=== PATIENT | female | born 1960 | race Caucasian/White ===

== ENCOUNTER 2016-04-23 10:46 | Observation (INO) | payer OTHER ==
[~2016-04-23] VITALS: Ht 149.9 cm; Wt 70.8 kg
--- NOTE | ~2016-04-23 | HEMODYNAMI ---
PATIENT:MARICHUY GONZALES MEDICAL RECORD: [id number] : 62 LOCATION[facility] [id number] ADMISSION DATE: 04/23/16 Generatedon:04/24/201614:23 Patient name: MARICHUY GONZALES Patient #: [id number] SSN: : 1960 Date of study: 04/24/2016 Page: Of Hemodynamic Procedure Report Patient Data Patient Demographics Procedure consent was obtained First Name: MARICHUY Gender: Female Last Name: CHRISTIAN : 1960 Middle Initial: L Age: 55 year(s) Patient #: [id number] Race: Unknown Additional ID: [id number] Contact details [address]: [address] [place] [address] State: [place] City: [place] Zip code: [address] Past Medical History Allergies Allergen Reaction Date Comments Reported Codeine 04/24/2016 Morphine 04/24/2016 Admission Admission Data Admission Date: 04/23/2016 Admission Time: 12:59 Admit Source: Other Room #: D.2122 Lab Results Lab Result Date: 04/24/2016 Lab Result Time: 0:00 Biochemistry Name Units Result Min Max Creatinine mg/dl 0.5 -*(----)-- 0.6 1.3 CBC Name Units Result Min Max Hemoglobin g/dl 14.5 --(*---)-- 13.5 17.5 Procedure Procedure Types Cath Procedure Diagnostic Procedure C [facility] w/Coronaries Miscellaneous Procedures Moderate Sedation up to 15 minutes Procedure Description Procedure Date Procedure Date: 04/24/2016 Procedure Start Time: 14:10 Procedure End Time: 14:23 Procedure Staff Name Function Jose Quezada MD Performing Physician João aTvares RN Nurse Mraiza Sanderson RT Monitor Ti Grant RT Research Chef Colton Guthrie RT Scrub Procedure Data Cath Procedure Fluoroscopy Diagnostic fluoroscopy Total fluoroscopy Time: 3.5 time: 3.5 min min Diagnostic fluoroscopy Total fluoroscopy dose: 426 dose: 426 mGy mGy Contrast Material Contrast Material Type Amount (ml) Isovue 300 65 Entry Location Entry Primary Successful Side Size Upsize Upsize Entry Closure Hernandes ccessful Closure Location (Fr) 1 (Fr) 2 (Fr) Remarks Device Remarks Radial Right 6 Fr Mechanical artery Short Compression Estimated blood loss: 5 ml Diagnostic catheters Device Type Used For End Catheter Placement Terumo 5Fr Pastor 110cm LV Angiography catheter Terumo 5Fr Pastor 110cm Left Coronary catheter Angiography Terumo 5Fr Pastor 110cm Right Coronary catheter Angiography Cordis Infinity 5Fr AR Right Coronary MOD Catheter Angiography Procedure Complications No complications Procedure Medications Medication Administration Route Dosage Oxygen NC 2 l/min Lidocaine 2% added to field 20 Heparin Flush Bag added to field 2 bags (1000units/500ml NS) 0.9% NaCl I.V. 100 ml/hr Versed I.V. 1 mg Fentanyl I.V. 50 mcg Radial Cocktail I.A. 1 syringe (Verapomil 2mg/Nitro 400mcg/Heparin 1500units) Hemodynamics Rest HGB: 14.5 (g/dl) Heart Rate: 92 (bpm) Pressure Samples Time Site Value (mmHg) Purpose Heart Use Rate(bpm) 14:12 LV 149/12,22 EDP 111 14:13 AO 119/85(96) Pullback 108 14:13 LV 141/7,17 Pullback 108 Gradients Valve Time Site 1 Site 2 Mean SEP/DFP Peak To Heart Use (mmHg) (sec/min) Peak Rate (mmHg) (bpm) Aortic 14:13 LV AO 9 21 22 108 141/7,17 119/85(96) Calculations Valve P-P Mean Valve Index Valve Source Name Gradient Area Flow (cm2) Aortic 22 9 22 9 Snapshots Pre Cath Intra NCS Post Cath Vital Signs Time Heart Resp SPO2 etCO2 AF2toxr NIBP (mmHg) Rhythm Pain Sedatio n Rate (ipm) (%) (mmHg) (mmHg) Status Level (bpm) 13:54:45 83 16 98 0 0 159/84(123) NSR 0 (11) 10(A) , No pain 13:59:03 83 16 100 0 0 151/87(136) NSR 0 (11) 10(A) , No pain 14:03:15 89 19 94 0 0 125/94(121) NSR 0 (11) 10(A) , No pain 14:08:14 97 18 98 0 0 Measuring NSR 0 (11) 10(A) , No pain 14:08:23 99 18 98 0 0 128/103(124) NSR 0 (11) 9(A) , No pain 14:12:33 110 18 98 0 0 140/88(0) NSR 0 (11) 9(A) , No pain 14:16:02 107 18 98 0 0 119/87(113) NSR 0 (11) 9(A) , No pain 14:20:03 106 19 98 0 0 128/92(124) NSR 0 (11) 10(A) , No pain Medications Time Medication Route Dose Verified Delivered Reason Notes Effectiveness by by 13:54:00 Oxygen NC 2 l/min Jose Buffie used for Damien Tavares RN procedure 13:54:08 Lidocaine 2% added 20ml Jose Jose for local to vial Damien Quezada MD anesthetic field 13:54:14 Heparin Flush added 2 bags Jose Jose used for Bag to Damien Quezada MD procedure (1000units/500ml field NS) 13:54:22 0.9% NaCl I.V. 100 Jose Buffie Per ml/hr Damien Tavares RN physician 14:06:54 Versed I.V. 1 mg Jose Buffie for sedation Damien Tavares RN 14:07:00 Fentanyl I.V. 50 mcg Jose Buffie for sedation Damien Tavares RN 14:12:04 Radial Cocktail I.A. 1 Jose Jose for (Verapomil syringe Damien Quezada MD vasodilation 2mg/Nitro 400mcg/Heparin 1500units) Procedure Log Time Note 13:25:26 Ti Grant RT(R) sent for patient. Start room use. 13:43:54 Admit Source: Other 13:47:20 Time tracking: Regular hours 13:47:24 Plan of Care:Hemodynamics will remain stable., Cardiac rhythm will remain stable., Comfort level will be maintained., Respiratory function will remain adequate., Patient/ family verbilizes understanding of procedure., Procedure tolerated without complication., Recovers from procedure without complications.. 13:48:30 Patient received from PCU to CCL 1 Alert and oriented. Tansferred to table in Supine position. 13:48:32 Warm blankets applied, and reyna hugger turned on for patient comfort. 13:48:33 Correct patient and procedure confirmed by team. 13:48:35 Signed procedure consent form obtained from patient. 13:48:41 ECG and BP/O2 sat monitors applied to patient. 13:48:43 Full Disclosure recording started 13:53:11 IV Extension Set opened to sterile field. 13:53:39 Vital chart was started 13:54:00 Oxygen 2 l/min NC was given by João Tavares RN; used for procedure; 13:54:08 Lidocaine 2% 20ml vial added to field was given by Jose Quezada MD; for local anesthetic; 13:54:14 Heparin Flush Bag (1000units/500ml NS) 2 bags added to field was given by Jose Quezada MD; used for procedure; 13:54:22 0.9% NaCl 100 ml/hr I.V. was given by João Tavares RN; Per physician; 14:01:53 Baseline sample Acquired. 14:02:38 H&P Date Dictated: 04/23/2016 Within 30 days and on chart.. 14:02:39 Pre-procedure instructions explained to patient. 14:02:40 Pre-op teaching completed and patient verbalized understanding. 14:02:41 Family in patients room. 14:02:50 Patient NPO since Midnight. 14:03:00 Patient allergic to Codeine 14:03:11 Patient allergic to Morphine 14:03:30 Is patient on blood thinner?No 14:03:32 Is patient on blood thinner?No 14:03:35 Is the patient allergic to Iodine/contrast media? No. 14:03:38 Patient diabetic? Yes. 14:03:39 If diabetic: On Metformin? No 14:03:43 Previous problem with sedation/anesthesia? No ? 14:03:45 Snore? Yes 14:03:46 Sleep apnea? No 14:03:48 Deviated septum? No 14:03:50 Opens mouth fully? Yes 14:03:51 Sticks out tongue? Yes 14:03:53 Airway obstruction? No ? 14:03:54 Dentures? No ? 14:03:57 Pre procedure: right dorsailis pedis pulse 2+ Normal; easily identifiable; not easily obliterated 14:03:59 Modified Woodrow's test Ulnar < 7 seconds 14:04:00 Patient pain scale 0/10 ?. 14:04:06 IV patent on arrival in right forearm with 0.9% NaCl at [facility]. 14:04:30 Lab Result : Creatinine 0.5 mg/dl 14:04:30 Lab Result : Hemoglobin 14.5 g/dl 14:04:34 Lab results completed and on chart. 14:04:37 Right Radial & Right Groin area was prepped with chlora-prep and draped in sterile fashion 14:04:38 Alarms reviewed by R. N. 14:04:38 Sharps counted by scrub and verified by R.N. 14:04:43 Use device set Radial Dx 14:04:44 Acist Syringe opened to sterile field. 14:04:45 Medline Cath Pack opened to sterile field. 14:04:45 Bag Decanter opened to sterile field. 14:04:46 Terumo 6Fr Slender Glidesheath opened to sterile field. 14:04:46 St Andre 260cm J .035 wire opened to sterile field. 14:04:47 Acist Hand Control opened to sterile field. 14:04:47 Acist Manifold opened to sterile field. 14:04:55 Cook 21G 4cm Radial Needle opened to sterile field. 14:05:20 Final Timeout: patient, procedure, and site verified with staff and physician. All members of the team are in agreement. 14:05:22 Right Radial site verified by team. 14:05:25 Physical assessment completed. ASA score P 2 - A patient with mild systemic disease as per Jose Quezada MD. 14:05:28 Sedation plan: IV Moderate Sedation Versed, Fentanyl 14:06:54 Versed 1 mg I.V. was given by João Tavares RN; for sedation; 14:07:00 Fentanyl 50 mcg I.V. was given by João Tavares RN; for sedation; 14:10:20 Procedure started. 14:10:25 Local anesthetic to right radial artery with Lidocaine 2% by Jose Quezada MD.INITIAL ACCESS ONLY 14:10:35 A 6 Fr Short sheath was inserted into the Right Radial artery 14:10:38 Zero performed for pressure channel P1 14:11:17 A Terumo 5Fr Pastor 110cm catheter was advanced over the wire and used for LV Angiography. 14:12:04 Radial Cocktail (Verapomil 2mg/Nitro 400mcg/Heparin 1500units) 1 syringe I.A. was given by Jose Quezada MD; for vasodilation; 14:12:46 LV gram done using MERAZ 14:12:53 LV hemodynamics recorded. 14:12:55 Injector settings: Ml/sec: 5, Volume: 15, 14:13:00 EF : 60 % 14:13:52 A Terumo 5Fr Pastor 110cm catheter was advanced over the wire and used for Left Coronary Angiography. 14:17:10 A Terumo 5Fr Pastor 110cm catheter was advanced over the wire and used for Right Coronary Angiography. removed unable to cannulate. 14:18:15 A Cordis Infinity 5Fr AR MOD Catheter was advanced over the wire and used for Right Coronary Angiography. 14:19:56 Catheter removed. 14:20:06 Procedure ended.(Physican Out) 14:20:16 Sheath removed intact; hemostasis achieved with Mechanical Compression to the Right Radial artery. 14:20:21 Terumo TR Band Standard opened to sterile field. 14:21:24 Fluoroscopy time 03.50 minutes. 14:21:29 Fluoroscopy dose: 426 mGy 14:21:29 Flurop Dose total: 426 14:21:33 Contrast amount:Isovue 300 65ml. 14:21:34 Sharps counted by scrub and verified by R.N. 14:21:36 TR band inflated with 12cc of air. 14:21:37 Insertion/operative site no bleeding no hematoma. 14:21:44 Post right radial artery:stable, clean and dry 14:21:45 Post Procedure Pulses reassessed and unchanged 14:21:49 Post-procedure physical assessment completed. ASA score P 2 - A patient with mild systemic disease as per Jose Quezada MD. 14:21:52 Post procedure rhythm: unchanged. 14:21:54 Estimated blood loss: 5 ml 14:21:55 Post procedure instruction explained to patient.Patient verbalizes understanding. 14:21:56 Patient needs reinforcement of post procedure teaching. 14:22:07 Procedure type changed to Cath procedure, Diagnostic procedure, LHC, LHC w/Coronaries, Miscellaneous Procedures, Moderate Sedation up to 15 minutes 14:22:21 Procedure Complication : No complications 14:23:01 Procedure and supply charges have been captured, reviewed, submitted and are correct. 14:23:03 See physician's report for complete and final results. 14:23:06 Vital chart was stopped 14:23:09 Report given to PCU. 14:23:12 Patient transfered to PCU with Bed. 14:23:14 Procedure ended. 14:23:14 Full Disclosure recording stopped 14:23:24 End room use (Document Last) Device Usage Item Name Manufacture Quantity Catalog Hospital Part Current Minimal Lot# / Number Charge Number Stock Stock Serial# Code IV Hospira 1 [id number] 61481 [id number] 5 Extension Set Acist Acist 1 27109 758182 017003 601064 20 Syringe [employer] Inc Medline Cardinal 1 [id number] 676233 04250 504291 5 Cath Pack Health Bag Microtek 1 2001S 499933 64794 451820 5 Decanter [employer]. Terumo 6Fr Terumo 1 [id number] 901443 138167 719612 [address] Andre 1 767673 982221 825494 925329 30 260cm J .035 wire Acist Hand Acist 1 61083 201657 527246 911034 5 Control Medical [employer] Inc Acist Acist 1 18580 957659 714604 781227 5 Manifold Medical [employer] Inc Cook 21G Cook Medical 1 [id number] 779057 667122 5 4cm Radial Needle Terumo 5Fr Terumo 1 33-1964 119461 573878 722772 5 Pastor 110cm catheter Cordis Cardinal 1 [id number] 575473 421881 698045 15 Inf[employer] 5Fr AR MOD Catheter Terumo TR Terumo 1 [id number] 097553 097747 328252 40 Band Standard Signature Audit [place] Stage Time Signature Unsigned Intra-Procedure 04/24/2016 Mariza 2:23:33 PM Counts RT(R) Signatures Monitor : Mariza Signature : Counts RT Date : Time : [facility] [address] [place] [address]
[2016-04-23 11:07] LABS: BASOPHILS 0.4 % (0.0-2.0); HEMATOCRIT 44.5 % (36.0-48.0); HEMOGLOBIN 15.6 g/dL (12-16); IMMATURE GRANULOCYTES 0.4 % (0-5); LYMPHOCYTES 34.8 % (15-50); MCH 31.5 pg (26.0-34.0); MCHC 35.1 g/dL (31.0-37.0); MCV 89.9 fL (80.0-100.0); MEAN PLATELET VOLUME 9.6 fL (7.4-10.4); MONOCYTES 6.8 % (2-11); NEUTROPHILS 55.6 % (40-80); PLATELET COUNT 181 10x3/uL (130-400); RBC 4.95 10x6/uL (4.00-5.40); RDW 12.8 % (11.5-14.5); WBC 5.5 10x3/uL (4.8-10.8)
[2016-04-23 11:36] LABS: ALBUMIN 4.2 g/dL (3.4-5.0); ALKALINE PHOSPHATASE 71 U/L (46-116); ALT (SGPT) 59 U/L (10-68); BILIRUBIN - TOTAL 0.28 mg/dL (0.2-1.3); CALC OSMOLALITY 287 mosm/kg (275-300); CALCIUM 9.6 mg/dL (8.5-10.1); CARBON DIOXIDE 26.9 mmol/L (21.0-32.0); CHLORIDE - SERUM 105 mmol/L (98-107); CREATININE - SERUM 0.8 mg/dL (0.6-1.3); GLUCOSE 147 mg/dL (74-106); PROTEIN - SERUM 7.6 g/dL (6.4-8.2); SODIUM 142 mmol/L (136-145); UREA NITROGEN 17 mg/dL (7-18); eGFR NON AFRICAN AMERICAN 79 mL/min (90-120)
[2016-04-23 11:48] LABS: AMYLASE - SERUM 81 U/L (25-115); CHOL - HDL RATIO 3.1 ratio (2.3-4.1); CHOLESTEROL, TOTAL 174 mg/dL (0-200); CKMB 0.7 U/L (0.0-3.6); CREATINE KINASE 67 UL (21-215); HDL CHOLESTEROL 57 mg/dL (32-96); LDL CHOLESTEROL 87 mg/dL (0-100); LDL-HDL RATIO 1.5 ratio (1.5-3.5); LIPASE 210 U/L (73-393); PRO BNP 131 pg/mL (0-125); TRIGLYCERIDE 153 mg/dL (30-200)
[2016-04-23 11:54] LABS: TROPONIN-I < 0.017 ng/mL (0.000-0.060)
[2016-04-23] MEDS ORDERED: LISINOPRIL10 MG PO (13:08)
[2016-04-23] MEDS ORDERED: TOPROL XL25 MG (13:10)
[2016-04-23] MEDS ORDERED: ESTRACE1 MG PO (13:11)
[2016-04-23] MEDS ORDERED: DAYPRO600 MG PO (13:12)
[2016-04-23] MEDS ORDERED: EFFEXOR XR75 MG (13:14)
[2016-04-23] MEDS ORDERED: OMEPRAZOLE20 M1 (13:15)
[2016-04-23] MEDS ORDERED: PAZEO2.5 ML EACH EYE (13:16)
--- NOTE | 2016-04-23 13:45 | NUR ---
RECIEVED FROM ER. AWAKE AND ALERT. ORIENTED TO ROOM. DENIES ANY NEEDS AT PRESENT TIME. TALKATIVE. TELEMERTY SHOWS SR. SL TO RIGHT AC. CALL LIGHT IN REACH WITH SR UP. WILL MONITOR
[2016-04-23 13:47] VITALS: BP 148/94; BMI 31.9
--- NOTE | 2016-04-23 14:44 | NUR ---
HOB UP. C/0 HEADACHE. DOCTOR NOTIFIED. NO CHEST PAIN.TELEMERTY SHOWS SR. WILL MONITOR
[2016-04-23 15:40] LABS: APPEARANCE CLEAR (CLEAR); BILIRUBIN NEGATIVE (NEGATIVE); COLOR YELLOW (YELLOW); GLUCOSE NEGATIVE (NEGATIVE); KETONE NEGATIVE (NEGATIVE); LEUKOCYTE ESTERASE NEGATIVE (NEGATIVE); NITRITE NEGATIVE (NEGATIVE); PROTEIN NEGATIVE (NEGATIVE); SPECIFIC GRAVITY 1.015 (1.005-1.020); UROBILINOGEN NORMAL (NORMAL)
[2016-04-23 15:41] LABS: CKMB 0.5 U/L (0.0-3.6); CREATINE KINASE 73 UL (21-215); TROPONIN-I < 0.017 ng/mL (0.000-0.060)
[2016-04-23 16:03] VITALS: BP 140/71
--- NOTE | 2016-04-23 17:45 | NUR ---
HOB UP TALKING WITH FAMILY. DENIES ANY NEEDS. CALL LIGHT IN REACH WITH SR UP.TELEMERTY SHOWS SR. WILL MONITOR
[2016-04-23 20:31] LABS: CKMB 0.2 U/L (0.0-3.6); CREATINE KINASE 52 UL (21-215); TROPONIN-I < 0.017 ng/mL (0.000-0.060)
[2016-04-23 20:51] VITALS: BP 156/57
--- NOTE | 2016-04-23 23:56 | NUR ---
INITIAL ROUNDS COMPLETED AT 1914 HRS. PT IN BR AT THAT TIME. ASSESSMENT COMPETED AT 2034 HRS. VSS. SR PER CM HR 85. IV TO RAC SL. LUNGS CTA. FSBS 118. SNACK PROVIDED. EKG COMPLETED AT THAT TIME. PM MEDS GIVEN. PT CURRENTLY RESTING WITH EYES CLOSED. LISANDRO EVEN AND REGULAR. SR UP X2, CALL LIGHT WITHIN REACH.
[2016-04-24 00:30] VITALS: BP 147/70
--- NOTE | 2016-04-24 01:40 | NUR ---
PT RESTING WITH EYES CLOSED. RESP EVEN AND REGULAR. SR UP X2, CALL LIGHT WITHIN REACH.
[2016-04-24 02:35] LABS: BASOPHILS 0.3 % (0.0-2.0); EOSINOPHILS 1.9 % (0-7); HEMATOCRIT 42.1 % (36.0-48.0); HEMOGLOBIN 14.5 g/dL (12-16); IMMATURE GRANULOCYTES 0.3 % (0-5); LYMPHOCYTES 45.2 % (15-50); MCH 31.1 pg (26.0-34.0); MCHC 34.4 g/dL (31.0-37.0); MCV 90.3 fL (80.0-100.0); MONOCYTES 8.5 % (2-11); NEUTROPHILS 43.8 % (40-80); RBC 4.66 10x6/uL (4.00-5.40); RDW 12.8 % (11.5-14.5); WBC 6.7 10x3/uL (4.8-10.8)
[2016-04-24 02:37] LABS: PLATELET COUNT 137 10x3/uL (130-400)
[2016-04-24 02:57] LABS: CALC OSMOLALITY 284 mosm/kg (275-300); CALCIUM 8.8 mg/dL (8.5-10.1); CARBON DIOXIDE 28.9 mmol/L (21.0-32.0); CHLORIDE - SERUM 105 mmol/L (98-107); CKMB 0.5 U/L (0.0-3.6); CREATINE KINASE 97 UL (21-215); GLUCOSE 122 mg/dL (74-106); POTASSIUM - SERUM 4.4 mmol/L (3.5-5.1); SODIUM 142 mmol/L (136-145); UREA NITROGEN 16 mg/dL (7-18)
[2016-04-24 03:00] LABS: CREATININE - SERUM 0.5 mg/dL (0.6-1.3)
[2016-04-24 03:01] LABS: TROPONIN-I < 0.017 ng/mL (0.000-0.060); eGFR NON AFRICAN AMERICAN > 90 mL/min (90-120)
--- NOTE | 2016-04-24 04:17 | NUR ---
PT RESTING WITH EYES CLOSED. RESP EVEN AND REGULAR. SR UP X2, CALL LIGHT WITHIN REACH.
[2016-04-24 04:30] VITALS: BP 144/78
--- NOTE | 2016-04-24 06:20 | NUR ---
VSS THROUGHOUT NIGHT. SR PER CM. PT DENIED ANY DISCOMFORT. NEEDS MET; WILL CONTINUE TO MONITOR.
[2016-04-24 08:03] VITALS: BP 132/67
--- NOTE | 2016-04-24 08:25 | NUR ---
RATIONALE FOR SCD'S EXPLAINED. REFUSES SCD'S
[2016-04-24] MEDS ORDERED: EFFEXOR XR75 MG PO (08:26)
[2016-04-24] MEDS ORDERED: OMEPRAZOLE20 M1 PO (08:27)
[2016-04-24] MEDS ORDERED: TOPROL XL25 MG PO (08:27)
--- NOTE | 2016-04-24 09:40 | NUR ---
TELEMETRY SR. FAMILY AT BS. CALL LIGHT IN REACH. WILL CONT. PLAN OF CARE.
[2016-04-24 12:19] VITALS: BP 140/70
[2016-04-24 12:51] VITALS: Ht 149.9 cm; Wt 70.8 kg
--- NOTE | 2016-04-24 13:41 | NUR ---
PRE-OPS GIVEN. TO WATER PROOFER BY BED.
[2016-04-24] MEDS ORDERED: PROTONIX40 MG PO (14:45)
--- NOTE | 2016-04-24 14:47 | NUR ---
BACK FROM RESOURCE RECOVERY SPECIALIST. VS WNL. RIGHT WRIST STABLE WITH TR BAND INTACT. WILL CONT. TO MONITOR.
[2016-04-24] MEDS ORDERED: ISOSORBIDE MONO30 M1 PO ×2 (14:48→14:49)
[2016-04-24 16:12] VITALS: BP 124/65
--- NOTE | 2016-04-24 17:35 | NUR ---
TR BAND DCD WITHOUT BLEEDING OR HEMATOMA NOTED. IV AND TELEMETRY DCD. DC PLANS GIVEN. UNDERSTANDING VOICED.
--- NOTE | 2016-04-24 17:49 | NUR ---
IV AND TELEMETRY DCD. DC PLANS GIVEN. UNDERSTANDING VOICED. ESCORTED TO CAR BY W/C.
--- NOTE | 2016-04-25 15:29 | OP ---
PATIENT NAME: MARICHUY GONZALES MEDICAL RECORD: [id number] :62 LOCATION:D. D.2122 ADMISSION DATE:04/23/16 SURGEON: MAJO BROWN M.D. DATE OF OPERATION: 04/24/2016 REFERRING PHYSICIAN: Karen Silva MD PROCEDURES PERFORMED: 1. Selective coronary angiography. 2. Left heart catheterization with ventriculogram. INDICATION: A 55-year-old woman presents with symptoms of accelerating angina. EQUIPMENT USED: A 5-Tanzanian Pastor catheter. TECHNIQUE: A 6-Tanzanian sheath was inserted in a retrograde fashion in the right radial artery. Next, selective coronary angiography was performed in standard view using 5-Tanzanian Pastor catheter. Left heart catheterization was performed using the Pastor catheter as well. CORONARY ANATOMY: 1. Left main: Left main trunk is moderate in caliber. It gives rise to the LAD and circumflex. There is no obstruction. 2. LAD: This is a moderate-caliber vessel extending to the apex. There is myocardial bridge noted in the mid segment; otherwise, the vessel is angiographically normal. First diagonal branch has a smooth 40% stenosis. This vessel appears to be less than 2 mm in diameter. 3. Circumflex: This vessel is large in caliber and dominant. It is a smooth-walled vessel and angiographically normal distally. 4. Right coronary artery: This vessel is small and nondominant. It is angiographically normal. 5. Left ventricle: Left ventricle is normal in size and function. No wall motion abnormalities are seen. Estimated ejection fraction is 60%. IMPRESSION: 1. Mild coronary artery disease. 2. Normal left ventricular function. RECOMMENDATIONS: At this point, we will continue with medical management. TRANSINT:[id number] Voice Confirmation ID: [id number] DOCUMENT ID: [id number] MAJO BROWN M.D. at 1529 CC: [id number] DICTATION DATE: 04/24/16 1425 PROGRAM ASSISTANT: 04/24/16 2311 DIS IN 04/24/16 [facility] [address] [place] [id number]
== END 2016-04-24 17:49 | disposition home or self-care (01) ==
LOC: D.ER 10:46 → D.M2 12:59 → OBSVTIME 12:59 → D.M2 12:59
PROVIDERS: Family Medicine; Internal Medicine Cardiovascular Disease; ADMIT Emergency Medicine
DX: I25.110 Atherosclerotic heart disease of native coronary artery with unstable angina pectoris (principal); I16.0 Hypertensive urgency; Q24.5 Malformation of coronary vessels; E11.65 Type 2 diabetes mellitus with hyperglycemia; K21.9 Gastro-esophageal reflux disease without esophagitis; G89.29 Other chronic pain